=== PATIENT | female | born 1995 | race Hispanic/Latino ===

== ENCOUNTER 2017-10-01 22:15 | Inpatient (IN) | payer SELFPAY ==
[2017-10-01] MEDS ORDERED: Ondansetron HCl/PF 4 MG/2 ML Vial ONE (22:42)
[2017-10-01] MEDS ORDERED: Morphine 4 MG/ML Carpuject ONE (22:42)
[2017-10-01 22:48] LABS: Bilirubin Negative (Negative); Blood, Urine Negative (Negative); Glucose, Urine (Dipstick) Negative (Negative); Ketone, Urine Negative (Negative); Nitrite Negative (Negative); Protein, Urine (Dipstick) Negative (Neg-Trace); Urobilinogen 0.2 mg/dL (0.2-1.0)
[2017-10-01 23:03] LABS: #Basophils 0.1 thou/uL (0.0-0.2); #Eosinphils 0.3 thou/uL (0.0-0.7); #Lymphocytes 3.4 thou/uL (1.20-3.40); #Monocytes 0.7 thou/uL (0.11-0.59); #Neutrophils 4.7 thou/uL (1.40-6.50); %Basophils 1.5 % (0.0-1.0); %Eosinophils 2.9 % (0.0-10.0); %Lymphocytes 37.4 % (28.0-48.0); %Monocytes 7.4 % (0.0-4.0); ALT (SGPT) 48 U/L (8-55); AST (SGOT) 34 U/L (5-34); Alkaline Phosphatase 71 U/L (40-150); Anion Gap 20 mmol/L (10-20); BUN (Urea Nitrogen) 10 mg/dL (7.0-18.7); Bilirubin, Total 0.3 mg/dL (0.2-1.2); Calc. Creatinine Clearance 0 mL/min (70-130); Calcium 10.3 mg/dL (7.8-10.44); Carbon Dioxide 18 mmol/L (22-29); Chloride 106 mmol/L (98-107); Estimated GFR-MDRD Greater than 90; Globulin 3.6 g/dL (2.4-3.5); Hematocrit 38.3 % (36.0-47.0); Hypochromia SLIGHT = 6-15 cells (100X) (0-5/hpf); Lipase 46 U/L (8-78); Mean Platelet Volume 8.7 fL (7.4-10.4); Microcytosis SLIGHT = 6-15 cells (100X) (0-5/hpf); Protein, Total 7.8 g/dL (6.0-8.3); White Blood Cell (WBC) Count 9.2 thou/uL (4.8-10.8)
--- NOTE | 2017-10-01 23:17 | CT ---
ABDOMEN AND PELVIC CT SCAN WITHOUT IV CONTRAST: 10/01/17 HISTORY: 22-year-old female with history of back pain and flank pain primarily right sided with nausea and sonny nful urination. The lung bases are clear. The visualized liver, gallbladder, pancreas, spleen, adrenal glands are unr emarkable as evaluated without IV contrast. There is no evidence for renal calculus or acute obstr uction. Normal appearing appendix. There is some minimal dilatation of some of the more proximal and mid small bowel loops with some air fluid levels suggesting some focal ileus or some low grade partia l small bowel obstructive changes. There is no discrete transition zone. There is scattered gas and f ecal material in the colon. IMPRESSION: Minimally abnormally dilated small bowel loops primarily proximally without a discrete transition zon e raising concern for some focal ileus or low grade partial small bowel obstruction. No evidence for renal calculus or obstructing calculus. Normal appearing appendix. There is some borderline size s cattered mesenteric lymph nodes including the right lower quadrant region. No abscess or abnormal flu id collection. POS: [facility]
[2017-10-01] MEDS ORDERED: Benzocaine 20% Spray 60 ML CAN ONE (23:58)
[2017-10-02] MEDS ORDERED: Morphine 4 MG/ML Carpuject ONE (00:06)
[2017-10-02] MEDS ORDERED: Ondansetron HCl/PF 4 MG/2 ML Vial ONE (00:07)
[2017-10-02] MEDS ORDERED: Ondansetron HCl/PF 4 MG/2 ML Vial IVP PRN (01:26)
[2017-10-02] MEDS ORDERED: Dextrose 5 %-0.45 % NaCl 1,000 ML IV SCH (01:30)
[2017-10-02] MEDS: Morphine 2 MG/ML SYRINGE SLOW IVP PRN ×2 (02:04→04:10)
[2017-10-02 03:42] VITALS: BMI 37.8
[2017-10-02] MEDS ORDERED: Ketorolac Tromethamine 30 MG/ML VIAL IVP PRN (05:13)
[2017-10-02] MEDS ORDERED: Sodium Chloride 0.9% 1,000 ML IV SCH (05:15)
[2017-10-02] MEDS: Acetaminophen 1,000 MG in Premix Bag 1 BAG IVPB PRN ×2 (05:26→06:40)
[2017-10-02] MEDS: Lactated Ringer's 1,000 ML IV SCH ×4 (06:39→21:09)
[2017-10-02] MEDS ORDERED: FLU VACC QS2017-18 36 mo. & older 0.5 ML SYRINGE IM ONE (09:00)
--- NOTE | 2017-10-02 11:45 | HP ---
HISTORY OF PRESENT ILLNESS: Edelmira Reyes is a 22-year-old female, 5 feet 3 inches, 213 pounds, 1-week history of right flank pain, right abdominal pain with some nausea, but without diarrhea. She presents to the emergency room. White count is 9 and hemoglobin 11.9. Liver function tests are nor mal. Basic metabolic profile normal. A CAT scan of the abdomen and pelvis revealed a normal appendi x, some minimally dilated bowel loops without discrete transition zone. No renal calculus. Some bor derline scattered lymph nodes noted. No abscess noted. ALLERGIES: None. TOBACCO: Less than one-half pack per day. ALCOHOL: Rarely. MEDICATIONS: None routinely. PAST SURGICAL/MEDICAL HISTORY: Noncontributory. REVIEW OF SYSTEMS: A 10-point noncontributory. No history of gastrointestinal illness or exposure. PHYSICAL EXAMINATION: VITAL SIGNS: Height 5 feet 3 inches, weight 213 pounds, temperature 97.8, heart rate 120, respirator y rate 18, blood pressure 105/63. HEAD, EYES, EARS, NOSE, AND THROAT: Unremarkable. LUNGS: Clear to auscultation. CARDIAC: Regular rate and rhythm without murmur or gallop. ABDOMEN: Soft, tenderness in right upper quadrant and right lateral mid abdomen. EXTREMITIES: Unremarkable. Bowel sounds present. ABDOMEN: Nondistended. ASSESSMENT AND PLAN: Abdominal pain of uncertain etiology. CAT scan is unrevealing. She had an NG tube placed from the emergency room, as I was told she had a bowel obstruction, but review of her CAT scan and lack of past surgical history makes this unlikely. We will obtain a gallbladder ultrasound . I think her problem may be biliary colic or cholecystitis. We will initiate Levaquin and obtain a gallbladder ultrasound and consider further intervention pending radiological findings.
[2017-10-02] MEDS: Acetaminophen 1,000 MG in Premix Bag 1 BAG IVPB SCH ×2 (12:06→17:07)
[2017-10-02] MEDS: Ketorolac Tromethamine 30 MG/ML VIAL IVP SCH ×2 (12:06→17:07)
--- NOTE | 2017-10-02 14:23 | ULT ---
RIGHT UPPER QUADRANT ULTRASOUND: Date: 10/02/17 HISTORY: Right upper quadrant pain. COMPARISON: CT abdomen and pelvis stone protocol dated 10/01/17. FINDINGS: The pancreas is not well seen. The liver measures 16.0 cm in length with increased hepatic echotextur e suggesting steatosis. The main portal vein is patent with antegrade flow. The gallbladder is normal. No pericholecystic flu id or wall thickening. Sonographic Granda's sign is negative. The right kidney measures 12.0 x 5.0 x 4.7 cm without mass, hydronephrosis, or abnormal calcification s. Common bile duct is normal. IMPRESSION: 1. Hepatic steatosis. 2. No cholelithiasis or evidence of cholecystitis. POS: [facility]
--- NOTE | 2017-10-02 17:13 | RAD ---
ABDOMEN TWO VIEWS CHEST ONE VIEW 10/02/17 HISTORY: 22-year-old female with right upper quadrant pain, nausea and vomiting. No significant acute process in the chest. There is no free intraperitoneal air. No overt calculus. T here is gas and fecal material in the colon. There does appear to be some scattered gas in nondilated or borderline sized small bowel loops with a few scattered air fluid levels on the upright study. IMPRESSION: Some persistent air and fluid levels in either borderline or nondilated small bowel loops without fabián dence for an overt obstruction. No free intraperitoneal air, overt calculus or other acute process. POS: [facility]
--- NOTE | 2017-10-02 17:17 | NM ---
HEPATOBILIARY NUCLEAR MEDICINE SCAN: 10/02/17 HISTORY: 22-year-old female with right upper quadrant pain for two weeks. Patient was injected with 5 millicuries technetium 99m Mebrofenin intravenously. There is prompt upta ke of the tracer by the liver with excretion in the biliary tree and emptying of the gallbladder and small bowel. At the 60 minute time interval, the patient was given approximately 8 oz of Ensure orally in place of CCK. Gallbladder ejection fraction equals 56% which is within normal limits. IMPRESSION: Unremarkable nuclear medicine hepatobiliary scan and ejection fraction. POS: [facility]
[2017-10-02] MEDS ORDERED: traMADol HCl 50 MG TAB PO PRN (17:18)
[2017-10-02] MEDS ORDERED: Magnesium Citrate 300 ML BOT PO SCH (17:30)
[2017-10-02] MEDS: traMADol HCl 50 MG TAB PO PRN (18:06)
[2017-10-02] MEDS ORDERED: Ondansetron HCl/PF 4 MG/2 ML Vial SLOW IVP PRN (20:34)
[2017-10-02] MEDS ORDERED: Ondansetron ODT 4 MG TAB PO PRN (20:35)
[2017-10-02] MEDS ORDERED: Pantoprazole 40 MG VIAL IVP SCH (21:00)
[2017-10-02] MEDS: Polyethylene Glycol 3350 17 GM Packet PO SCH (21:06)
[2017-10-03] MEDS: Ketorolac Tromethamine 30 MG/ML VIAL IVP SCH ×3 (00:24→12:00)
[2017-10-03] MEDS: Acetaminophen 1,000 MG in Premix Bag 1 BAG IVPB SCH ×3 (00:24→12:00)
[2017-10-03] MEDS: traMADol HCl 50 MG TAB PO PRN (00:25)
[2017-10-03] MEDS: Lactated Ringer's 1,000 ML IV SCH ×2 (05:56→12:09)
[2017-10-03] MEDS ORDERED: Magnesium Citrate 300 ML BOT PO SCH (07:00)
[2017-10-03] MEDS: Polyethylene Glycol 3350 17 GM Packet PO SCH (09:29)
[2017-10-03 13:52] VITALS: BP 105/71; TEMP 97.9
--- NOTE | 2017-10-03 15:44 | PRG ---
DATE OF SERVICE: 10/03/2017 SUBJECTIVE: Mr. Reyes is doing well. OBJECTIVE: VITAL SIGNS: Stable, afebrile. She had some vomiting last night and she was made n.p.o. and Dr. Michelle moody saw her this morning, did not feel that she needs these sorts of further workup. All workup t o-date has been negative. CAT scan of abdomen and pelvis, ultrasound of the gallbladder, HIDA scan e jection fraction. She feels better today and is not having any pain. She has chronic back pain pres ent for many months, made worse by a fall last week and her abdominal pain is resolved after bowel mo vements. She probably did have some degree of constipation. LUNGS: Clear to auscultation. CARDIAC: Regular rate and rhythm without murmur or gallop. ABDOMEN: Soft, nontender, no masses. EXTREMITIES: Unremarkable. ASSESSMENT AND PLAN: 1. Abdominal pain, probably related to constipation. 2. Chronic back pain and has suggested exercise and weight loss. The patient will be discharged tylor e. 3. Diet as tolerated and return to see Surgery as needed for her back pain. She may need Neurology or Neurosurgery evaluation, but at this time she is not having any radicular pain.
--- NOTE | 2017-10-03 22:40 | CON ---
DATE OF CONSULTATION: 10/03/2017 REFERRING PHYSICIAN: Dr. Juan Christie. REASON FOR CONSULTATION: Abdominal pain, nausea, and vomiting. HISTORY OF PRESENT ILLNESS: Edelmira Darden is a very pleasant 22-year-old Latin-Congolese fema le hospitalized with abdominal pain and the initial impression was that she had possible SBO. Initia lly, she had NG tube placement done, which really did not drain any much fluid. The NG was removed. The patient had abdominal sonogram and also HIDA scan later, both were negative. The patient had so me stool in the colon and was given some laxatives. After she took the laxatives, she started feelin g sick to stomach and had an episode of vomiting last night. This morning, she actually feels better and she had a stool today. She has pain predominantly over the right CV angle area. The pain was s udden onset. The pain was very severe. The pain actually came on into her right flank area. The pa tient had no pain over the epigastric area right lower quadrant. The pain predominantly over the rig ht CV angle. The patient had no similar episodes in the past. The patient had no dysuria, hematuria , or frequency of urination. No similar episodes in the past. This morning, she had a stool and she actually feels better. Her pain is predominantly again over the right CV angle. No other relevant history. ALLERGIES: None. SOCIAL HISTORY: She is a smoker, smokes 3-pack of cigarettes one month. Does not drink alcohol. No history of drug abuse. MEDICAL ILLNESSES: None. SURGERIES: None. MENSTRUAL HISTORY: Periods are regular. LMP 09/28/2017. At times, she does bleed very heavily. REVIEW OF SYSTEMS: A 10-point review totally unremarkable except for pain over the right CV angle an d back towards the right flank. PHYSICAL EXAMINATION: GENERAL: She appears very comfortable in no acute distress. VITAL SIGNS: Stable. She is afebrile. Pulse is 91, blood pressure 114/76. HEENT: Conjunctivae clear. CARDIOVASCULAR: First and second heart sounds normal. LUNGS: Clear to auscultation. ABDOMEN: Soft to palpate. Abdomen is nondistended. Abdomen is nontender over various quadrants. S he has lot of pain tenderness over the right CV angle and right flank area. EXTREMITIES: Reveal no edema. LABORATORY DATA: Basically normal. Her CBC is normal. WBC 9200, hemoglobin 11.9, hematocrit 38.3, MCV 75.1, platelet 128,000, polymorphs 50, lymphocytes 37, monocytes 7. Serum chemistry: Sodium is 140, potassium 4.1, chloride 106, bicarbonate 18, BUN is 10, creatinine 0.66, glucose 87, calcium 10. 3, bilirubin 0.3, AST is 34, ALT is 48, alkaline phosphatase 71, albumin 4.2. Urine test n egative. Abdominal CAT scan, abdominal sonogram, HIDA scan all reported normal. CLINICAL IMPRESSION: A 22-year-old Latin-[place] female with pain predominantly over the right cost overtebral angle and appears more musculoskeletal. The patient's workup was negative. The abdomen i s very benign, without any tender spots. RECOMMENDATIONS: 1. Regular diet. 2. without any nausea, vomiting, discharged home on possibly tramadol and Flexeril. 3. She does have mild thrombocytopenia, which is difficult to explain. She has no history of any li mo disease and alcohol abuse. She probably needs to follow it up as an outpatient.
--- NOTE | 2017-10-04 00:31 | DIS ---
DATE OF ADMISSION: 10/01/2017 DATE OF DISCHARGE: 10/03/2017 PROCEDURES: CT scan of abdomen and pelvis, questionably significant dilated small bowel loops, no tr ansition zone, nonspecific borderline lymphadenopathy, mesenteric. HIDA scan ejection fraction steve l. Gallbladder ultrasound normal. Acute abdominal x-rays, normal. Consultation with Dr. Rush, no further workup necessary. HISTORY: A 22-year-old female with chronic low back pain exacerbated by a fall last week. She prese nted to emergency room with abdominal pain and back pain. CAT scan revealed the above findings and I was called by the emergency room physician stated that she had a bowel obstruction. NG tube was josafat edwin overnight, it did not have any significant output, it was removed. Abdominal CAT scan revealed n onspecific abdominal findings without suggestion of a bowel obstruction. She did have moderate stool . The patient underwent a gallbladder ultrasound that was normal. She has some tenderness in the ri t upper quadrant as well as HIDA scan ejection fraction was normal. She was given laxatives and he r abdominal pain improved. After laxatives, she had the persistent chronic low back pain, which she has had for many months, exacerbated by a fall last week. She was advised to lose weight and exercis e. Patient being discharged home at this time with diet and activity as tolerated. She will take ov [id number] analgesics. She will take PPIs as necessary. She will follow up with Dr. Christie as berhane weeks.
== END 2017-10-03 15:35 | disposition home or self-care (01) | DRG 390 ==
LOC: SCSER 22:15 → SURG A 23:29
PROVIDERS: ADMIT Specialist; ATTEND Specialist
DX: K56.609 Unspecified intestinal obstruction, unspecified as to partial versus complete obstruction (principal); F17.210 Nicotine dependence, cigarettes, uncomplicated; M54.5 Low back pain; G89.29 Other chronic pain; R63.4 Abnormal weight loss; R59.1 Generalized enlarged lymph nodes; Z68.32 Body mass index [BMI] 32.0-32.9, adult
CPT/HCPCS: 74022; 74176; 76705; 78227; 80053; 81003; 81025; 83690; 84703; 85025; 90471; 90682; 90732; 96361; 96374; 96375; 96376; 99406; A9537; C9113; G0008; G0009; J0131; J1885; J1956; J2270; J2405; J7120; Q2036